=== PATIENT | female | born 1995 | race Caucasian/White ===

== ENCOUNTER 2021-05-29 18:13 | Emergency (ER) | payer MEDICAID ==
[~2021-05-29] VITALS: Ht 162.6 cm; Wt 70.8 kg
[2021-05-29 18:19] VITALS: BP 114/55
--- NOTE | 2021-05-29 18:27 | NUR ---
PT AMBULATED TO BED 9
[2021-05-29] MEDS ORDERED: KETOROLAC 30 MG/ML VIAL IVP ONE (18:50)
--- NOTE | 2021-05-29 18:51 | NUR ---
25Y FEMALE FROM HOME WITH C/O RLQ ABOMINAL PAIN, LOWER BACK PAIN, AND NAUSEA X1 WEEK. LAST BM TODAY. TOOK TYLENOL AT 2 PM TODAY WITH LITTLE TO NO RELIEF. PT IS CURRENTLY ON HER MENSTURAL CYCLE. PT DENIES ANY CHEST PAIN, FEVER/CHILLS, VOMITTING AT THIS TIME. PT STATED THE PAIN IS FELT MORE IN HER BACK, BUT ALSO IN HER LOWER ABDOMEN REGION. PT DENIES ANY DYSURIA, BUT STATED "SHE HAS AN INCREASE URGE TO URINATE NOW." ABDOMEN IS TENDER TO TOUCH, MORE SO ON THE LOWER ABDOMEN REGION. PT PLACED ON BEDISDE BASKET HAND BRAIDER AND PUT INTO GOWN. PT CURRENTLY A&OX4 PMH: HEART SURGERY 21 YEARS AGO. RODOLFO
--- NOTE | 2021-05-29 18:51 | NUR ---
18 GUAGE IV ESTABLISHED IN AC AND BLOODWORK COLLECTED
--- NOTE | 2021-05-29 18:51 | NUR ---
Note undone in EDM - 05/29/21 at 1900 by [email or web address] 25Y FEMALE FROM HOME WITH C/O RLQ ABOMINAL PAIN, LOWER BACK PAIN, AND NAUSEA X1 WEEK. LAST BM TODAY. TOOK TYLENOL AT 2 PM TODAY WITH LITTLE TO NO RELIEF. PT IS CURRENTLY ON HER MENSTURAL CYCLE. PT DENIES ANY CHEST PAIN, FEVER/CHILLS, VOMITTING AT THIS TIME. PT STATED THE PAIN IS FELT MORE IN HER BACK, BUT ALSO IN HER LOWER ABDOMEN REGION. PT DENIES ANY DYSURIA, BUT STATED "SHE HAS AN INCREASE URGE TO URINATE NOW." PT PLACED ON BEDISDE CAFETERIA MANAGER AND PUT INTO GOWN. PT CURRENTLY A&OX4 PMH: HEART SURGERY 21 YEARS AGO. RODOLFO
--- NOTE | 2021-05-29 18:56 | NUR ---
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
--- NOTE | 2021-05-29 18:56 | NUR ---
PT PROVIDED WITH WARM BLANKET
--- NOTE | 2021-05-29 19:06 | NUR ---
PT TAKEN TO CT VIA W/C
[2021-05-29 19:10] LABS: BASOPHILS % (AUTO) 0.2 % (0.0-2.0); EOSINOPHILS % (AUTO) 0.1 % (0.0-4.0); HEMATOCRIT 35.4 % (36-48); HEMOGLOBIN 12.3 g/dL (12.0-16.0); LYMPHOCYTES % (AUTO) 10.5 % (20.5-51.1); MEAN CORPUSCULAR HEMOGLOBIN 31 pg (27-31); MEAN CORPUSCULAR HGB CONC 35 g/dL (33-37); MEAN CORPUSCULAR VOLUME 89.9 fL (80-94); MONOCYTES # (AUTO) 0.6 K/uL (0.8-1.0); MONOCYTES % (AUTO) 5.6 % (1.7-9.3); NEUTROPHILS # (AUTO) 8.3 K/uL (1.8-7.7); NEUTROPHILS % (AUTO) 83.6 % (42.2-75.2); PLATELET COUNT (AUTO) 226 K/uL (140-450); RED BLOOD CELL COUNT(AUTO) 3.94 MIL/uL (4.20-5.40); RED CELL DISTRIBUTION WIDTH 12.5 % (11.6-13.7)
--- NOTE | 2021-05-29 19:14 | NUR ---
PT RETURNED TO BED [address] VIA W/C
[2021-05-29 19:21] LABS: APPEARANCE,URINE CLEAR (CLEAR); BILIRUBIN,URINE NEGATIVE (NEGATIVE); BLOOD, URINE 3+ (NEGATIVE); COLOR,URINE ORANGE (YELLOW); LEUKOCYTE ESTERASE ,URINE 2+ (NEGATIVE); NITRITE, URINE NEGATIVE (NEGATIVE); UGLUCOSE NEGATIVE (NEGATIVE)
--- NOTE | 2021-05-29 19:21 | NUR ---
Received report from Caridad SAMUELS for continuation of care
--- NOTE | 2021-05-29 19:21 | NUR ---
Pt report given to ABRIL LIZARRAGA. Transfer of care at this time.
[2021-05-29 19:39] LABS: ALBUMIN 3.6 g/dL (3.4-5.0); ANION GAP 14.7 (8-16); CARBON DIOXIDE 25.7 mmol/L (21-32); CREATININE 0.5 mg/dL (0.6-1.3); POTASSIUM 3.4 mmol/L (3.5-5.1); TOTAL BILIRUBIN 1.5 mg/dL (0.0-1.0)
[2021-05-29] MEDS ORDERED: ACET-10509 PO (19:39)
[2021-05-29] MEDS ORDERED: IBUP-2213 PO (19:39)
[2021-05-29 20:19] LABS: RBC,URINE >100 /HPF (0-5); WBC,URINE 20-60 /HPF (0-5)
[2021-05-29] MEDS ORDERED: CEPH250C16 PO (20:52)
[2021-05-29] MEDS ORDERED: cephALEXin 500 MG CAP PO ONE (20:55)
[2021-05-29 21:27] VITALS: BP 94/56
--- NOTE | 2021-05-29 21:27 | NUR ---
Patient discharged with v/s stable. Written and verbal after care instructions given and explained. Patient alert, oriented and verbalized understanding of instructions. Ambulatory with steady gait. All questions addressed prior to discharge. ID band removed. Patient advised to follow up with PMD. Rx of acetaminophen, cephalexin, and ibuprofen given. Patient educated on indication of medication including possible reaction and side effects. Opportunity to ask questions provided and answered. vss, a/ox4, ambulatory w/o assistance, unlabored breathing, IV removed, and calm demeanor.
== END 2021-05-29 21:27 | disposition home or self-care (01) ==
LOC: MED 18:13
DX: N39.0 Urinary tract infection, site not specified (principal); I51.9 Heart disease, unspecified
CPT/HCPCS: 36415; 74176; 80053; 81001; 81025; 83690; 85025; 87086; 96374; 99284; J1885